=== PATIENT | male | born 2000 | race Caucasian/White ===

== ENCOUNTER 2023-11-16 09:38 | Emergency (ER) | payer OTHER, SELFPAY ==
--- NOTE | 2023-11-16 09:41 | ED.MALEGU ---
HPI - Male Genitourinary General Chief complaint: Urogenital-Male Stated complaint: Irritation Near Groin Time Seen by Provider: 11/16/23 09:40 Source: patient Mode of arrival: ambulatory Limitations: no limitations History of Present Illness HPI Narrative: Trip is a 23 year old male patient presenting to the clinic today with c/o uretheral redness and discomfort. He reports irritation to the tip of his penis urethera was worse last night. Denies any penile discharge or burning with urination. States last homosexual sexual intercourse was approximately 2 week ago. No fever, chills, abdomen pain, or back pain. Related Data Home Medications Medication Instructions Recorded Confirmed emtricitabine 200 mg-tenofovir 1 tablet PO DAILY 11/16/23 11/16/23 disoproxil fumarate 300 mg tablet Allergies Allergy/AdvReac Type Severity Reaction Status Date / Time No Known Allergies Allergy Verified 11/16/23 10:05 Review of Systems Review of Systems: Pertinent positives per HPI. Patient denies any fever, chills, rash, headache, visual changes, dizziness, cough, runny nose, sore throat, shortness of breath, chest pain, palpitations, nausea, vomiting, diarrhea, constipation, abdominal pain, or any urinary issues. PMFSH Comments At the time of my signature, I reviewed and agree with the nursing past medical, surgical, social, and family history. There is no relevant family history pertinent to the patient complaint. Exam Narrative: General: Well-developed, well nourished, in no apparent distress. Head: Normocephalic, atraumatic. Cardio: Regular rate and rhythm, s1 and s2 normal, no murmur appreciated. Resp: Clear to auscultation bilaterally, no rhonchi, rales, wheezing or rubs. Abdomen: Soft, pliable, bowel sounds present in all quadrants, non-tender to palpation, no organomegly, no CVAT tenderness. : Circumcised male without corneal adhesions, redness with mild swelling to the tip of the penis around the urethra, tender to palpation over the urethra, bilateral testes descended, no testicle discomfort, no lesions or mass noted on the penis or scrotum. Course Course Emergency Course: Portions of this record may have been created with voice recognition software. Level of Care: Express Care Visit Vital Signs Vital signs: Vital Signs Temperature 36.4 C 11/16/23 09:51 Pulse Rate 66 11/16/23 09:51 Respiratory Rate 15 11/16/23 09:51 Blood Pressure 111/77 11/16/23 09:51 Pulse Oximetry 100 11/16/23 09:51 Oxygen Delivery Room Air 11/16/23 09:51 Temperature 36.4 C 11/16/23 10:02 Pulse Rate 66 11/16/23 10:02 Respiratory Rate 15 11/16/23 10:02 Blood Pressure 111/77 11/16/23 10:02 Pulse Oximetry 100 11/16/23 10:02 Oxygen Delivery Room Air 11/16/23 10:02 Vital signs reviewed MDM - Male Genitourinary MDM Narrative Medical decision making narrative: At the time of visit patient is resting comfortably on the exam table. Patient appears to be nontoxic. Labs: UA negative for any sign of infection, blood, or protein. Gonorrhea, Trichomonas, and chlamydia testing was sent to the lab. Plan: I suspect patient has urethritis. Will treat patient as he has STI urethritis and give Rocephin 500 mg IM and send doxycycline to his pharmacy. Supportive measures were discussed with the patient and they voiced understanding discharge instructions and agrees to treatment plan. Return precautions reviewed Differential Diagnosis Differential diagnosis: Likely urinary tract infection, urethritis and other (STI-chlamydia, gonorrhea, Trichomonas) Lab Data Labs: Lab Results 11/16/23 Range/Units 10:11 POC Urine Color Yellow POC Urine Clarity Clear POC Urine pH 7.0 POC Ur Specif [place] 1.015 POC Urine Protein Negative POC Ur Glucose (UA) Negative POC Urine Ketones Negative POC Urine Blood Negative POC Urine Nitrite Negative POC Urine Bilirubin
[2023-11-16 09:51] VITALS: BP 111/77; PULSE 66; RESP 15; TEMP 36.4; O2SAT 100
[2023-11-16 10:02] VITALS: BP 111/77; PULSE 66; RESP 15; TEMP 36.4; O2SAT 100
[2023-11-16 10:13] LABS: EDUAAPPEAR Clear; EDUABILI Negative; EDUABLOOD Negative; EDUACOLOR1 Yellow; EDUAGLUCOSE Negative; EDUAKETONE Negative; EDUALEUKO Negative; EDUANITRATE Negative; EDUAPROTEIN Negative; EDUASPGRAVITY 1.015; EDUAUROBILI 0.2
[2023-11-16] MEDS: cefTRIAXone 500 MG, LIDOCAINE HCL 1% LOCAL INJ 1 ML IM (10:20)
[2023-11-16 19:35] LABS: Trichomonas Vag PCR NOT DETECTED (NOT DETECTE)
[2023-11-16 19:57] LABS: Chlamydia trachomatis NOT DETECTED (NOT DETECTE); Neisseria gonorrhoeae PCR NOT DETECTED (NOT DETECTE)
== END 2023-11-16 10:34 | disposition home or self-care (01) ==
PROVIDERS: Emergency Provider Nurse Practitioner Family
DX: N34.2 Other urethritis (principal)
CPT/HCPCS: 81003; 87491; 87591; 87661; 96372; 99203; G0463; J0696

== ENCOUNTER 2023-12-31 11:15 | Emergency (ER) | payer OTHER, SELFPAY ==
[2023-12-31 11:32] VITALS: BP 124/78; PULSE 76; RESP 16; TEMP 36.4; O2SAT 100
--- NOTE | 2023-12-31 11:44 | ED.BACK ---
HPI - Back Pain/Injury General Chief Complaint: Back Pain/Injury Stated Complaint: rt side lower back pain Source: patient Mode of arrival: ambulatory Limitations: no limitations History of Present Illness HPI Narrative: 23-year-old male presented for complaint of right lower back pain for about 1 week. He denies known injury. Pain is described as 'tender.' Has been taking ibuprofen. Denies pain radiating into the hips or legs, numbness, tingling, weakness of the lower extremities, or change in gait, saddle paresthesia or loss of bowel or bladder. Denies abdominal pain or hematuria. Related Data Home Medications Medication Instructions Recorded Confirmed emtricitabine 200 mg-tenofovir 1 tablet PO DAILY 11/16/23 11/16/23 disoproxil fumarate 300 mg tablet Allergies Allergy/AdvReac Type Severity Reaction Status Date / Time No Known Allergies Allergy Verified 11/16/23 10:05 Review of Systems Review of Systems: CONSTITUTIONAL: Denies body aches, fever, chills EYES: Denies visual changes CARDIOVASCULAR: Denies chest pain, palpitations, or edema. RESPIRATORY: Denies cough or dyspnea. GASTROINTESTINAL: Denies abdominal pain, nausea, vomiting, or diarrhea. SKIN: Denies rash, itching, or wounds. MUSCULOSKELETAL: reports back pain NEUROLOGIC: Denies headache, numbness, tingling, or weakness. All systems reviewed & are unremarkable except as noted in HPI and below PMFSH Comments At time of signature, I have reviewed and agree with nursing past medical, surgical, social and family history unless otherwise noted. Please see nursing chart for further information. There is no relevant family history pertinent to the presenting complaint Exam Narrative: GENERAL: Well-appearing CHEST: Speaks in full sentences. No respiratory distress. HEART: Regular rate and rhythm. Normal and equal peripheral pulses. MUSC: No Vertebral point tenderness or para spinal tenderness. Mild right lower lumbar tenderness with palpation. No CVA tenderness. BLEs with normal strength and sensation, normal range of motion; no pain with movement. No ecchymosis, or obvious deformity; alignment normal, pulse palpable and equal bilaterally, skin warm, dry, pink. Capillary refill less than 3 seconds. Gait steady. SKIN: Warm, dry, no rash. NEURO: Alert and oriented x3. Back/Spine/Pelvis: Back/spine/pelvis image: 1. localized area of pain reported Course Course Emergency Course: Patient is aware of diagnosis, understands and agrees to treatment plan. Anticipatory guidance given. Patient agrees to follow-up as directed and is aware of reasons to seek care at the emergency department. Portions of this record may have been created with voice recognition software Level of Care: Express Care Visit Vital Signs Vital signs: Vital Signs Temperature 97.6 F 12/31/23 11:32 Pulse Rate 76 12/31/23 11:32 Respiratory Rate 16 12/31/23 11:32 Blood Pressure 124/78 12/31/23 11:32 Pulse Oximetry 100 12/31/23 11:32 Temperature 97.6 F 12/31/23 11:32 Pulse Rate 76 12/31/23 11:32 Respiratory Rate 16 12/31/23 11:32 Blood Pressure 124/78 12/31/23 11:32 Pulse Oximetry 100 12/31/23 11:32 Reviewed MDM - Back Pain/Injury MDM Narrative Medical decision making narrative: Discussed physical exam findings. Advised supportive measures and s/s to go to the ER. Pt is stable and appropriate for outpt treatment and follow up with pcp. Differential Diagnosis Differential diagnosis: Likely lumbar radiculopathy, sciatica, strain of lumbar region, renal colic, pyelonephritis and discitis Discharge Plan Discharge Clinical Impression: Low back pain Patient Disposition: Home, Self-Care Condition: Stable Instructions: Acute Low Back Pain (ED) Additional Instructions: Avoid lifting. pushing. pulling, or anything that worsens the pain. Recommend gentle stretching Take Motrin 600-800mg every 6-8 hours with fo
[2023-12-31 11:55] LABS: EDUAAPPEAR Clear; EDUABILI Negative (Negative); EDUABLOOD Negative (Negative); EDUACOLOR1 Yellow; EDUAGLUCOSE Negative (Negative); EDUAKETONE Negative (Negative); EDUALEUKO Negative (Negative); EDUANITRATE Negative (Negative); EDUAPROTEIN Negative (Negative); EDUAUROBILI 0.2
== END 2023-12-31 11:58 | disposition home or self-care (01) ==
PROVIDERS: Emergency Provider Nurse Practitioner Family
DX: M54.50 Low back pain, unspecified (principal)
CPT/HCPCS: 81003; 87086; 99213; G0463